=== PATIENT | male | born 1965 | race Caucasian/White ===

== ENCOUNTER 2019-06-30 17:12 | Emergency (ER) | payer BC, SELFPAY ==
[2019-06-30 17:21] VITALS: BP 166/112; PULSE 92; RESP 18; TEMP 36.6; O2SAT 100; BMI 38.4
--- NOTE | 2019-06-30 17:29 | ED_ITS ---
Entered by Lisa Barrera, acting as scribe for Chel Sim MD Jun 30, 2019 17:12 HPI - Abdominal Pain General: Chief Complaint: Abdominal Pain Stated Complaint: abd pain Time Seen by Provider: 06/30/19 17:29 Source: patient, family and RN notes reviewed Mode of arrival: ambulatory Limitations: no limitations History of Present Illness: HPI narrative: 54 yo male presents to ED with complaints of abdominal pain. He said it began about 3 hours ago (1430). He denies chest pain. The patient said he has had problems with his gall bladder a long time ago. He is diabetic. He has RUQ abdominal pain. He said he has had nausea with no vomiting, no diarrhea. His last bowel movement was this morning. His abdomen is tender to the touch. The patient is in severe pain. MD elicited complaint: abdominal pain Pertinent past history: none Onset (ago): hour(s) (3 (1430)) Pain Consistency: constant Location: Diffuse and RUQ Severity: severe Quality: aching and sharp Radiation: other (diffuse) Migration to: other (diffuse) Exacerbating factors: movement Relieving factors: nothing Associated Symptoms: Reports belching and nausea; Denies chills, dysuria and fever(s) Review of Systems Const: Denies: fever, chills, body aches or change in appetite Eyes: Denies: blurry vision or eye discomfort ENMT: Denies: throat pain or dental pain Card: Denies: chest pain Resp: Denies: shortness of breath GI: Reports: nausea and belching : Denies: painful urination Musc: Denies: neck pain or back pain Skin/Breast: Denies: rash Neuro: Denies: headache Psych: Denies: depression [place]/Lymph: Denies: easy bruising All/Imm: Denies: hives PFSH ED PFSH: Social History Smoking and tobacco status: current every day smoker Physical Exam Const: COMMON NORMALS: oriented x3 and healthy appearing HENMT: COMMON NORMALS: normocephalic and head/scalp atraumatic HEAD & SCALP: normocephalic and atraumatic Eye: COMMON NORMALS: PERRL and EOMs intact bilaterally PUPIL: Yes PERRL Neck/C-Spine: COMMON NORMALS: full ROM and supple Chest: COMMONS NORMALS: inspection of chest normal and palpation of chest normal Resp: COMMON NORMALS: normal respiratory effort, no retractions, no use of accessory muscles and clear to auscultation bilaterally AUSCULTATION: clear to auscultation bilaterally Cardio: COMMON NORMALS: regular rate, regular rhythm and no murmurs RATE: regular rate RHYTHM: regular rhythm GI: COMMON NORMALS: normal to inspection, nondistended, normoactive bowel so unds, soft to palpation and no masses PALPATION: Yes soft and Yes tender Details: RUQ Extremity: COMMON NORMALS: normal to inspection and full ROM Neuro: COMMON NORMALS: oriented x3, moves all extremities and no focal motor deficits Psych: COMMON NORMALS: mental status grossly normal, thought process normal and cooperative THOUGHT PROCESS: normal thought process Skin: COMMON NORMALS: no rashes or lesions noted and no wounds GENERAL SKIN EXAM: no rashes or lesions noted Course Vital Signs: Vital signs: Vital Signs Temperature 97.9 F 06/30/19 17:21 Pulse Rate 101 H 06/30/19 19:06 Respiratory Rate 18 06/30/19 19:06 Blood Pressure 160/106 06/30/19 19:06 Pulse Oximetry 95 06/30/19 19:06 MDM - Abdominal Pain MDM Narrative: Medical decision making narrative: Patient presents here with a kidney stone likely causing his pain. Stone should pass we will place him on Flomax and pain meds. We will discharge him with a strainer and he is to follow-up with urology. Patient has been stable while here. His pain is much improved. Lab Data: Labs: Lab Results 06/30/19 06/30/19 06/30/19 Range/Units 17:44 17:44 18:18 WBC 9.9 (4.0-10.0) 10^3/ uL RBC 5.76 H (4.1-5.3) 10^6/u L Hgb 16.1 (11.7-16.6) g/dL Hct 48.8 (42.0-52.0) % MCV 84.7 (80-94) fL MCH 28.0 (28.0-34.0) pg MCHC 33.0 (30.0-36.0) g/dL RDW 13.6 (12.1-15.1) % Plt Count 262 (130-400) 10^3/c mm MPV 11.2 H (7.4-10.4) fL Neut % (Auto) 83.1 % Lymph % (Auto) 10.5 % [place] % (Auto) 5.5 % Eos % (Auto) 0.2 % Baso % (Auto) 0.3 % Neut # (Auto) 8.3 H (1.8-7.7) 10^3/u L Lymph # (Auto) 1.0 (0.8-4.8) 10^3/u L [place] # (Auto) 0.6 (0.2-0.9) 10^3/u L Eos # (Auto) 0.0 (0.0-0.8) 10^3/u L Baso # (Auto) 0.0 (0.0-0.1) 10^3/u L Nucleated RBC % (a uto) 0 % Nucleated RBCs # 0.0 /100WBC Sodium 132 L (136-145) mmol/L Potassium 4.3 (3.5-5.1) mmol/L Chloride 91 L (98-107) mmol/L Carbon Dioxide 23 (22-29) mmol/L Anion Gap 22.3 H (5-19) BUN 14 (6-20) mg/dL Creatinine 1.2 (0.7-1.2) mg/dL GFR Calculation 63.1 L (90-130) mL/min Glucose 505 H* (65-115) mg/dL Lactate 2.4 H (0.5-2.2) mmol/L Calcium 10.3 (8.5-10.5) mg/dL Total Bilirubin 0.5 (0.15-1.2) mg/dL AST 23 (0-40) U/L ALT 31 (0-41) U/L Alkaline Phosphata se 123 (40-130) IU/L Total Protein 8.0 (6.6-8.7) g/dL Albumin 4.4 (3.5-5.2) g/dL Globulin 3.6 (1.3-4.6) g/dL Lipase 27 (13-60) U/L Imaging Data ^: CT Abd/Pel: Radiologist's impression: [address] [address] [address] Scan Report Signed Patient: Angeli Kolb #: [id number] : 1965Acct#:[id number] Age/Sex: 54 / MADM Date: 06/30/19 Loc: ERRoom/Bed: Attending Dr: Ordering Provider/Ordering MD: Chel Sim MD Date of Service: 06/30/19 Procedure(s): CT abdomen pelvis w con* [id number] Accession Number(s): [id number] Report Number: [id number] PROCEDURE INFORMATION: Exam: CT Abdomen And Pelvis With Contrast Exam date and time: 06/30/2019 6:14 PM Age: 54 years old Clinical indication: Abdominal pain; Generalized; Patient HX: C/O sudden onset abd pain w nausea TECHNIQUE: Imaging protocol: Computed tomography of the abdomen and pelvis with intravenous contrast. Total DLP: 1991.36 mGy-cm Radiation optimization: All CT scans at this facility use at least one of these dose optimization techniques: automated exposure control; mA and/or kV adjustment per patient size (includes targeted exams where dose is matched to clinical indication); or iterative reconstruction. Contrast material: OMNI 300; Contrast volume: 95 ml; Contrast route: 18G; COMPARISON: No relevant prior studies available. FINDINGS: Lungs: Calcified granulomas in the left hilum and lower lobe. Mild atelectasis. Liver: The diffuse fatty infiltration of the liver. Calcified granuloma in the liver. Gallbladder and bile ducts: Normal. No calcified stones. No ductal dilation. Pancreas: Normal. No ductal dilation. Spleen: Calcified granulomas in the spleen. Adrenals: Normal. No mass. Kidneys and ureters: Small left renal cyst. Mild right hydronephrosis and perinephric stranding. 3 mm calculus at the right ureterovesical junction. Stomach and bowel: Unremarkable. No obstruction. No mucosal thickening. Appendix: No evidence of appendicitis. Intraperitoneal space: Unremarkable. No free air. No significant fluid collection. Vasculature: Unremarkable. No abdominal aortic aneurysm. Lymph nodes: Unremarkable. No enlarged lymph nodes. Bladder: Unremarkable as visualized. Reproductive: Unremarkable as visualized. Bones/joints: Degenerative changes. No acute fracture. Soft tissues: Unremarkable. CT/CT abdomen pelvis w con* [id number] IMPRESSION: 1. 3 mm calculus at the right ureterovesical junction with mild right hydronephrosis and perinephric stranding. 2. Fatty liver. Radiation Dose CTDIVOL = (mGy): DLP = 1990.36 (mGy-cm) Dictated By:Vic Fernandes Signed By:Zelalem Fernandes Date/Time:06/30/191909 DD/ EKG Data ^: EKG 1: Attestation: I personally reviewed and interpreted this EKG as follows: EKG interpretation date: 06/30/19 EKG interpretation time: 17:35 Interpretation: nsr hr [address] or t wave abnormalities qrs 96 qtc 403 Discharge Plan Discharge Patient Disposition: Home, Self-Care Clinical Impression: Calculus of kidney Condition: Stable Prescriptions: [place] 5-325 mg tablet 1 tab PO Q6H PRN (Reason: pain) Qty: 14 RF: 0 Zofran 4 mg tablet 4 mg PO QID PRN (Reason: nausea and vomiting) Qty: 14 RF: 0 Flomax 0.4 mg capsule 0.4 mg PO DAILY Qty: 5 RF: 0 Discharge Orders: Discharge Order (Routine); Ordered 06/30/19 Ordered By: Chel Sim Discharge Diet: Advance as tolerated Discharge Activity: Resume usual activity Patient Instructions: Kidney Stones (ED) Discharge Date/Time: 06/30/19 19:54 Coding Level of Care Code ED Electronics Engineering Technologist for Chg Fwd Exam Comprehensive The documentation recorded by the Bruce joseph Valerie R, accurately reflects the service I personally performed and the decisions made by Chiquis banks Korby, MD Jun 30, 2019 17:12
--- NOTE | 2019-06-30 17:33 | CTR_ITS ---
PROCEDURE INFORMATION: Exam: CT Abdomen And Pelvis With Contrast Exam date and time: 06/30/2019 6:14 PM Age: 54 years old Clinical indication: Abdominal pain; Generalized; Patient HX: C/O sudden onset abd pain w nausea TECHNIQUE: Imaging protocol: Computed tomography of the abdomen and pelvis with intravenous contrast. Total DLP: 1990.36 mGy-cm Radiation optimization: All CT scans at this facility use at least one of these dose optimization techniques: automated exposure control; mA and/or kV adjustment per patient size (includes targeted exams where dose is matched to clinical indication); or iterative reconstruction. Contrast material: OMNI 300; Contrast volume: 95 ml; Contrast route: 18G; COMPARISON: No relevant prior studies available. FINDINGS: Lungs: Calcified granulomas in the left hilum and lower lobe. Mild atelectasis. Liver: The diffuse fatty infiltration of the liver. Calcified granuloma in the liver. Gallbladder and bile ducts: Normal. No calcified stones. No ductal dilation. Pancreas: Normal. No ductal dilation. Spleen: Calcified granulomas in the spleen. Adrenals: Normal. No mass. Kidneys and ureters: Small left renal cyst. Mild right hydronephrosis and perinephric stranding. 3 mm calculus at the right ureterovesical junction. Stomach and bowel: Unremarkable. No obstruction. No mucosal thickening. Appendix: No evidence of appendicitis. Intraperitoneal space: Unremarkable. No free air. No significant fluid collection. Vasculature: Unremarkable. No abdominal aortic aneurysm. Lymph nodes: Unremarkable. No enlarged lymph nodes. Bladder: Unremarkable as visualized. Reproductive: Unremarkable as visualized. Bones/joints: Degenerative changes. No acute fracture. Soft tissues: Unremarkable. CT/CT abdomen pelvis w con* [id number] IMPRESSION: 1. 3 mm calculus at the right ureterovesical junction with mild right hydronephrosis and perinephric stranding. 2. Fatty liver. Radiation Dose CTDIVOL = (mGy): DLP = 1990.36 (mGy-cm)
[2019-06-30 17:43] VITALS: O2SAT 94
[2019-06-30 17:53] LABS: Basophils % 0.3 %; Eosinophils % 0.2 %; Hematocrit 48.8 % (42.0-52.0); Hemoglobin 16.1 g/dL (11.7-16.6); Lymphocytes % 10.5 %; Mean Corpuscular Volume 84.7 fL (80-94); Mean Platelet Volume 11.2 fL (7.4-10.4); Monocytes # 0.6 10^3/uL (0.2-0.9); Monocytes % 5.5 %; Neutrophils # 8.3 10^3/uL (1.8-7.7); Neutrophils % 83.1 %; Nucleated Red Blood Cells % 0 %; Platelet Count 262 10^3/cmm (130-400); Red Blood Count 5.76 10^6/uL (4.1-5.3); Red Cell Distribution Width 13.6 % (12.1-15.1); White Blood Count 9.9 10^3/uL (4.0-10.0)
[2019-06-30] MEDS: sodium chloride 0.9% 1,000 ML 999 ML IV (17:53)
[2019-06-30] MEDS: morphine 4 mg/mL SDV 1 mL IVP ×2 (17:53→18:15)
[2019-06-30] MEDS: ondansetron 2 mg/ML SDV 2 mL 4 MG IVP (17:53)
[2019-06-30 18:06] LABS: Alanine Aminotransferase 31 U/L (0-41); Albumin Level 4.4 g/dL (3.5-5.2); Alkaline Phosphatase 123 IU/L (40-130); Anion Gap 22.3 (5-19); Aspartate Amino Transferase 23 U/L (0-40); Blood Urea Nitrogen 14 mg/dL (6-20); Calcium 10.3 mg/dL (8.5-10.5); Carbon Dioxide 23 mmol/L (22-29); Chloride 91 mmol/L (98-107); Globulin 3.6 g/dL (1.3-4.6); Glomerular Filtration Rate 63.1 mL/min (90-130); Lipase 27 U/L (13-60); Potassium 4.3 mmol/L (3.5-5.1); Sodium 132 mmol/L (136-145); Total Bilirubin 0.5 mg/dL (0.15-1.2)
[2019-06-30] MEDS: LORazepam 2 mg/mL INJ 1 mL 1 MG IVP (18:15)
[2019-06-30 18:19] VITALS: BP 137/96; PULSE 59; O2SAT 92
--- NOTE | 2019-06-30 18:21 | PC.NURSE ---
pt transported to CT by stretcher with tech
[2019-06-30] MEDS: iohexol 300 mg/mL 100 mL Btl IV (18:28)
[2019-06-30 18:41] LABS: Glucose 505 mg/dL (65-115)
[2019-06-30 18:44] LABS: Lactate (Lactic Acid level) 2.4 mmol/L (0.5-2.2)
--- NOTE | 2019-06-30 18:47 | PC.NURSE ---
Pt's oxygen saturation 85% on room air. Pt placed on 3L NC supplemental O2
--- NOTE | 2019-06-30 19:05 | PC.NURSE ---
Report received from NERIS Anthony and care transferred to NERIS Aguilar
[2019-06-30 19:06] VITALS: BP 160/106; PULSE 101; RESP 18; O2SAT 95
[2019-06-30 19:51] VITALS: BP 160/109; PULSE 99; RESP 17; O2SAT 94
[2019-06-30 19:55] LABS: Add Urine Microscopic? YES; Bilirubin Urine Neg (NEGATIVE); Blood Urine 2+ (Negative); Glucose Urine UA 4+ (Normal); Ketones Urine 2+ (Negative); Leukocyte Esterase Urine Negative (Negative); Nitrate Urine Negative (Negative); Protein Urine Neg (Negative); Urine Appearance Clear (CLEAR); Urine Color Yellow (Yellow); Urobilinogen Urine Norm (Negative); pH Urine 7 (5-7)
[2019-06-30 19:56] LABS: Add Urine Culture? No; Bacteria Urine TRACE; RBC Urine 0-4 /hpf (0-2); Squamous Epithelial Cell Urine 0-4 (0-5); WBC Urine 0-4 /hpf (0-5)
--- NOTE | 2019-07-02 13:43 | DCPLANNER ---
industrial engineering manager had message to schedule a follow up appointment for patient with Dr. Layton. industrial engineering manager called the office of Dr. Layton. industrial engineering manager spoke with Daina, gave clinic patients information, was told that patients information would be printed and given to Roseanna for review. Clinic will call patient with appointment information. industrial engineering manager will call for appointment information.
--- NOTE | 2019-07-11 13:05 | DCPLANNER ---
senior software project manager called the office of Dr. Layton to confirm that a follow up appointment had been scheduled for patient. senior software project manager spoke with Kita, was told that patient did not want to come to [place], that patient wanted to go to [facility].
== END 2019-06-30 19:54 | disposition home or self-care (01) ==
PROVIDERS: Emergency Provider Emergency Medicine
DX: N13.2 Hydronephrosis with renal and ureteral calculous obstruction (principal); E11.9 Type 2 diabetes mellitus without complications; F17.200 Nicotine dependence, unspecified, uncomplicated
CPT/HCPCS: 36415; 74177; 80053; 81001; 83605; 83690; 85025; 96361; 96374; 96375; 96376; 99283; A9270; J2060; J2270; J2405; J7030; Q9967